=== PATIENT | female | born 1985 | race Caucasian/White ===

== ENCOUNTER → 2020-12-02 | Day surgery (SDC) | payer OTHER ==
[~2020-12-02] MED LIST: AUGMENTIN 875-1 EACH PO; BENTYL 20MG TAB20 MG PO; FLAGYL500 MG PO; FLUOXETINE HCL10 MG PO; FOLIC ACID 1 MG1 MG PO; HUMIRA40 MG/0.8 SQ; IMURAN TAB 50 M50 MG PO; LAMICTAL100 MG PO; LEVOFLOXACIN500 MG PO; LEXAPRO20 MG PO; LODINE CAP 300300 MG PO; PREDNISONE 10 M10 MG PO; PREDNISONE 20 M20 MG PO; ZOFRAN 4 MG TAB4 MG PO; ZOFRAN ODT 4 MG4 MG PO; ZOFRAN4 MG PO
== END | disposition home or self-care (01) ==
LOC: OR 07:45
PROVIDERS: Internal Medicine Gastroenterology
PROC: 0DBC8ZX Excision of Ileocecal Valve, Via Natural or Artificial Opening Endoscopic, Diagnostic (ICD-10-PCS; principal; 2020-12-02 08:30)
DX: K50.80 Crohn's disease of both small and large intestine without complications (principal); K59.09 Other constipation; Z79.899 Other long term (current) drug therapy; Z20.822 Contact with and (suspected) exposure to COVID-19
CPT/HCPCS: 87635; J2704; J7040

== ENCOUNTER 2021-02-16 07:24 | Emergency (ER) | payer OTHER ==
[~2021-02-16 07:24] MED LIST changes: -AUGMENTIN 875-1 EACH PO; -BENTYL 20MG TAB20 MG PO; -FLAGYL500 MG PO; -LEVOFLOXACIN500 MG PO; -LODINE CAP 300300 MG PO; -PREDNISONE 10 M10 MG PO; -PREDNISONE 20 M20 MG PO; -ZOFRAN 4 MG TAB4 MG PO; -ZOFRAN ODT 4 MG4 MG PO; -ZOFRAN4 MG PO
[2021-02-16 08:54] LABS: HEMOGLOBIN 12.9 gm/dl (12.3-15.3); RED BLOOD COUNT 4.47 M/UL (4.00-5.10); WHITE BLOOD COUNT 7.6 K/UL (4.5-11.0)
[2021-02-16 09:14] LABS: BUN/CREATININE RATIO 12 (0-10)
[2021-02-16] MEDS ORDERED: LEVOFLOXACIN500 MG PO (16:17)
[2021-02-16] MEDS ORDERED: FLAGYL500 MG PO (16:17)
[2021-02-16] MEDS ORDERED: ZOFRAN ODT 4 MG4 MG PO (16:17)
== END 2021-02-16 16:26 | disposition home or self-care (01) ==
LOC: ER1 07:24
PROVIDERS: Family Medicine
DX: K50.90 Crohn's disease, unspecified, without complications (principal); K52.9 Noninfective gastroenteritis and colitis, unspecified; Z90.49 Acquired absence of other specified parts of digestive tract
CPT/HCPCS: 80053; 81001; 83690; 84703; 85025; 87086; 96365; 96375; 99284; J1885; J2270; J2405; J2543

== ENCOUNTER 2021-03-02 04:19 | Emergency (ER) | payer OTHER ==
[~2021-03-02 04:19] MED LIST changes: +FLAGYL500 MG PO; +LEVOFLOXACIN500 MG PO; +ZOFRAN ODT 4 MG4 MG PO
[2021-03-02 05:12] LABS: HEMOGLOBIN 13.6 gm/dl (12.3-15.3); RED BLOOD COUNT 4.65 M/UL (4.00-5.10); WHITE BLOOD COUNT 11.5 K/UL (4.5-11.0)
[2021-03-02 05:37] LABS: BUN/CREATININE RATIO 11 (0-10)
[2021-03-02] MEDS ORDERED: AUGMENTIN 875-1 EACH PO (08:17)
[2021-03-02] MEDS ORDERED: PREDNISONE 20 M20 MG PO (08:23)
== END 2021-03-02 09:37 | disposition home or self-care (01) ==
LOC: ER1 04:19
PROVIDERS: Family Medicine
DX: N39.0 Urinary tract infection, site not specified (principal); K50.90 Crohn's disease, unspecified, without complications; Z90.49 Acquired absence of other specified parts of digestive tract; Z79.899 Other long term (current) drug therapy
CPT/HCPCS: 80053; 81001; 83690; 84703; 85025; 87086; 96374; 96375; 99284; J0696; J1885; J2270; J2405; J2930; Q9967

== ENCOUNTER 2021-03-31 10:35 | Emergency (ER) | payer OTHER ==
[~2021-03-31 10:35] MED LIST changes: +AUGMENTIN 875-1 EACH PO; +PREDNISONE 20 M20 MG PO
[2021-03-31 11:24] LABS: HEMOGLOBIN 13.9 gm/dl (12.3-15.3); RED BLOOD COUNT 4.91 M/UL (4.00-5.10); WHITE BLOOD COUNT 12.6 K/UL (4.5-11.0)
[2021-03-31 11:32] LABS: BUN/CREATININE RATIO 11 (0-10)
[2021-03-31] MEDS ORDERED: PREDNISONE 10 M10 MG PO (12:57)
[2021-03-31] MEDS ORDERED: ZOFRAN4 MG PO (12:57)
== END 2021-03-31 17:34 | disposition home or self-care (01) ==
LOC: ER1 10:35
PROVIDERS: Physician Assistant
DX: K50.90 Crohn's disease, unspecified, without complications (principal); Z90.49 Acquired absence of other specified parts of digestive tract
CPT/HCPCS: 80053; 81001; 84703; 85025; 96374; 96375; 99284; J2270; J2405

== ENCOUNTER → 2021-04-01 | Outpatient (CLI) | payer OTHER ==
[~2021-04-01] MED LIST changes: +BENTYL 20MG TAB20 MG PO; +LODINE CAP 300300 MG PO; +PREDNISONE 10 M10 MG PO; +ZOFRAN 4 MG TAB4 MG PO; +ZOFRAN4 MG PO
== END ==
LOC: RAD 09:09
DX: K50.812 Crohn's disease of both small and large intestine with intestinal obstruction (principal)
CPT/HCPCS: 74250

== ENCOUNTER 2021-04-23 20:15 | Emergency (ER) | payer OTHER ==
[~2021-04-23 20:15] MED LIST changes: -BENTYL 20MG TAB20 MG PO; -LODINE CAP 300300 MG PO; -ZOFRAN 4 MG TAB4 MG PO
[2021-04-23 21:01] LABS: HEMOGLOBIN 13.1 gm/dl (12.3-15.3); RED BLOOD COUNT 4.39 M/UL (4.00-5.10); WHITE BLOOD COUNT 8.4 K/UL (4.5-11.0)
[2021-04-23 21:17] LABS: BUN/CREATININE RATIO 7 (0-10)
[2021-04-24] MEDS ORDERED: BENTYL 20MG TAB20 MG PO (02:30)
[2021-04-24] MEDS ORDERED: LODINE CAP 300300 MG PO (02:30)
[2021-04-24] MEDS ORDERED: ZOFRAN 4 MG TAB4 MG PO (02:30)
== END 2021-04-24 02:48 | disposition home or self-care (01) ==
LOC: ER1 20:15
PROVIDERS: Physician Assistant
DX: R10.31 Right lower quadrant pain (principal); Z90.49 Acquired absence of other specified parts of digestive tract; K50.90 Crohn's disease, unspecified, without complications
CPT/HCPCS: 80053; 81001; 85025; 96372; 99284; J1885; Q9967

== ENCOUNTER → 2021-07-29 | Outpatient (CLI) | payer OTHER ==
[~2021-07-29] MED LIST changes: +BENTYL 20MG TAB20 MG PO; +LODINE CAP 300300 MG PO; +ZOFRAN 4 MG TAB4 MG PO
== END ==
LOC: RAD 11:17
DX: R07.81 Pleurodynia (principal); R06.02 Shortness of breath; Z98.890 Other specified postprocedural states; R91.8 Other nonspecific abnormal finding of lung field
CPT/HCPCS: 71046

== ENCOUNTER 2022-03-19 01:39 | Emergency (ER) | payer OTHER ==
[2022-03-19 05:27] LABS: HEMOGLOBIN 12.9 gm/dl (12.3-15.3); RED BLOOD COUNT 4.44 M/UL (4.00-5.10); WHITE BLOOD COUNT 15.3 K/UL (4.5-11.0)
[2022-03-19 05:48] LABS: BUN/CREATININE RATIO 23 (0-10)
[2022-03-19] MEDS ORDERED: Holter Monitor (07:01)
== END 2022-03-19 07:30 | disposition home or self-care (01) ==
LOC: ER1 01:39
PROVIDERS: Family Medicine
DX: R55 Syncope and collapse (principal); S00.03XA Contusion of scalp, initial encounter; Z90.49 Acquired absence of other specified parts of digestive tract; W19.XXXA Unspecified fall, initial encounter; Y99.0 Civilian activity done for income or pay
CPT/HCPCS: 70450; 80053; 82550; 82553; 84484; 84703; 85025; 93005; 93242; 96374; 96375; 99284; J2270; J2405